=== PATIENT | male | born 1980 | race African-American/Black ===

== ENCOUNTER 2019-08-25 17:08 | Emergency (ER) | payer OTHER ==
[~2019-08-25] VITALS: Ht 175.3 cm; Wt 86.2 kg
[2019-08-25 17:50] LABS: ABSOLUTE NEUTROPHILS 8.7 thou/uL (1.4-8.2); BASOPHILS 0.8 % (0.0-2.0); EOSINOPHILS 0.6 % (0.0-3.0); HEMATOCRIT 42.4 % (42.0-52.0); HEMOGLOBIN 13.7 gm/dL (14.0-18.0); LYMPHOCYTES 20.9 % (24.0-44.0); MCH 24.7 pg (26.0-34.0); MCHC 32.2 g/dL (28.0-37.0); MCV 76.8 fL (80.0-100.0); MONOCYTES 7.4 % (1.0-8.0); PLATELET COUNT 206 thou/uL (150-400); POLYS 70.3 % (36.0-66.0); RBC 5.52 mil/uL (4.50-6.00); RDW 14.8 % (10.5-14.5); WBC 12.3 thou/uL (4.0-11.0)
[2019-08-25 17:59] LABS: URINE BILIRUBIN NEGATIVE (Negative); URINE BLOOD NEGATIVE (Negative); URINE CLARITY CLEAR; URINE COLOR YELLOW; URINE GLUCOSE-RANDOM* NEGATIVE (Negative); URINE KETONES NEGATIVE (Negative); URINE LEUKOCYTES-REFLEX NEGATIVE (Negative); URINE NITRITE-REFLEX NEGATIVE (Negative); URINE PROTEIN (DIPSTICK) NEGATIVE (Negative); URINE UROBILINOGEN 0.2 E.U./dl (0.2-1.0)
[2019-08-25 17:59] LABS: CALCIUM 9.5 mg/dL (8.5-10.1); CREATININE 0.9 mg/dL (0.7-1.3); POTASSIUM 4.3 mmol/L (3.5-5.1)
[2019-08-25 18:05] LABS: ALBUMIN 4.4 g/dL (3.4-5.0); TOTAL BILIRUBIN 0.2 mg/dL (0.2-1.0); TOTAL PROTEIN 8.2 g/dL (6.4-8.2)
[2019-08-25] MEDS ORDERED: CARAFATE1 GM PO (20:55)
[2019-08-25] MEDS ORDERED: PROTONIX40 M2 PO (20:55)
[2019-08-25 21:22] VITALS: BP 136/88
== END 2019-08-25 21:24 | disposition home or self-care (01) ==
LOC: ER 17:08
PROVIDERS: Emergency Medicine
DX: R10.12 Left upper quadrant pain (principal); R14.0 Abdominal distension (gaseous); R19.7 Diarrhea, unspecified; F17.210 Nicotine dependence, cigarettes, uncomplicated

== ENCOUNTER 2019-09-29 02:33 | Emergency (ER) | payer OTHER ==
[~2019-09-29] VITALS: Ht 172.7 cm; Wt 86.2 kg
[~2019-09-29 02:33] MED LIST: CARAFATE1 GM PO; PROTONIX40 M2 PO
[2019-09-29 03:18] VITALS: BP 135/93
== END 2019-09-29 03:19 | disposition home or self-care (01) ==
LOC: ER 02:33
DX: R22.0 Localized swelling, mass and lump, head (principal)